=== PATIENT | male | born 1950 | race Caucasian/White ===

== ENCOUNTER 2018-01-27 11:37 | Inpatient (IN) ==
[2018-01-27] MEDS ORDERED: Metoprolol Tartrate 25 MG Tablet PO ONE (12:15)
[2018-01-27] MEDS ORDERED: Sodium Chlor 0.9% Inj 500 ML IV.CONT ONE (12:15)
[2018-01-27] MEDS ORDERED: Chlorhexidine Gluconate 2% 1 Pack (2 Cloths) TOPICAL ONE (12:15)
[2018-01-27] MEDS ORDERED: Sodium Chloride 0.9% 2 ML Flush PRN IV.FLUSH (12:18)
[2018-01-27] MEDS ORDERED: fentaNYL Citrate Inj 250 MCG/5 ML Ampul ONE (12:42)
[2018-01-27] MEDS ORDERED: Lidocaine PF 1% Inj 5 ML Syringe OTHER ONE (13:45)
[2018-01-27] MEDS ORDERED: Labetalol HCl Inj 100 MG/20 ML Vial IV.CONT ONE (13:45)
[2018-01-27] MEDS ORDERED: hydrALAZINE HCl Inj 20 MG/ML Vial IV.PUSH ONE (13:45)
[2018-01-27 14:17] LABS: INR 1.2 Ratio; Prothrombin Time 12.2 sec (9.8-11.6)
[2018-01-27] MEDS ORDERED: Sugammadex Inj 200 MG/2 ML Vial IV.PUSH ONE (14:57)
[2018-01-27] MEDS ORDERED: Ketorolac Inj 30 MG/ML (IVP) Vial IV.PUSH PRN (15:09)
[2018-01-27] MEDS ORDERED: Potassium Chlor 40 mEq Premix 40 MEQ/100 ML PIGGYBACK IV.SIG PRN (15:09)
[2018-01-27] MEDS ORDERED: Potassium Chlor 20 mEq Premix 20 MEQ/100 ML PIGGYBACK IV.SIG PRN (15:09)
[2018-01-27] MEDS ORDERED: Naloxone Inj 0.4 MG/ML Vial IV.PUSH PRN (15:21)
[2018-01-27] MEDS ORDERED: Dextrose 50% in Water 50 ML Vial IV.PUSH PRN (15:22)
[2018-01-27] MEDS ORDERED: *Enalaprilat Inj 1.25 MG/ML Vial IV.PUSH ONE (15:32)
[2018-01-27] MEDS ORDERED: KCL 20 mEq/D5W/LR Inj 1,000 ML ONE (15:32)
[2018-01-27] MEDS ORDERED: Morphine Inj 30 MG/30 ML PCA.VIAL PCA ONE (15:32)
[2018-01-27] MEDS ORDERED: *Meperidine Inj 25 MG/ML Vial PERIprocedural Use ONLY ONE (15:35)
[2018-01-27 15:53] LABS: Baso # (Auto) 0.1 th/mm3 (0.0-0.2); Baso % (Auto) 0.8 % (0.0-2.0); Eos # (Auto) 0.1 th/mm3 (0.0-0.4); Eos % (Auto) 1.1 % (0.0-4.0); Hematocrit 44.6 % (39.0-51.0); Hemoglobin 14.9 gm/dL (13.0-17.0); Lymph # (Auto) 1.6 th/mm3 (1.0-4.8); Lymph % (Auto) 17.7 % (9.0-44.0); Mean Corpuscular HGB Conc 33.3 % (32.0-36.0); Mean Corpuscular Hemoglobin 33.9 pg (27.0-34.0); Mean Corpuscular Volume 101.6 fL (80.0-100.0); Mean Platelet Volume 8.7 fL (7.0-11.0); Mono # (Auto) 0.6 th/mm3 (0.0-0.9); Mono % (Auto) 6.8 % (0.0-8.0); Neut # (Auto) 6.8 th/mm3 (1.8-7.7); Neut % (Auto) 73.6 % (16.0-70.0); Platelet Count 102 th/mm3 (150-450); Red Blood Count 4.39 mil/mm3 (4.50-5.90); Red Cell Distribution Width 13.4 % (11.6-17.2); White Blood Count 9.2 th/mm3 (4.0-11.0)
[2018-01-27] MEDS ORDERED: KCL 20 mEq/D5W/LR Inj 1,000 ML IV.CONT SCH ×2 (16:00→20:00)
[2018-01-27] MEDS ORDERED: ceFAZolin 2 GM Premix Inj 2 GM/50 ML PIGGYBACK IV.SIG SCH (16:00)
[2018-01-27] MEDS: Dextrose 5%/NaCl 0.9% Inj 1,000 ML IV.CONT SCH ×2 (16:07→16:50)
[2018-01-27 16:38] LABS: Anion Gap 8 meq/L (5-15); Blood Urea Nitrogen 13 mg/dL (7-18); Chloride 106 meq/L (98-107); Glomerular Filtration Rate Greater Than 89 mL/min (>89); Glucose,Random 223 mg/dL (74-106); Potassium 4.6 meq/L (3.5-5.1); Sodium 138 meq/L (136-145)
[2018-01-27] MEDS: Insulin NovoLIN Regular Correctional Sugar Inj SQ SCH ×2 (17:15→23:13)
--- NOTE | 2018-01-27 19:34 | MP ---
cc: Camden Marie MD, John T MD DATE OF OPERATION: 01/27/2018 DATE OF PROCEDURE: 01/27/2018 PREOPERATIVE DIAGNOSIS: Ascending colon polyp. POSTOPERATIVE DIAGNOSIS: Ascending colon polyp. PROCEDURE PERFORMED: Ascending colectomy. ANESTHESIA: General endotracheal. SURGEON: Camden Marie MD LICENSED AUDIOLOGIST: Colt Blake MD ESTIMATED BLOOD LOSS: 25 mL OPERATING TIME: 50 minutes. OPERATIVE FINDINGS: This patient was found to have a good size sessile colon polyp that was attempted to be removed by EMR. He was referred to [place] for surgery. I did a colonoscopy on him, looked at the polyp and felt that it was too sessile to be removed. It was ulcerated, but it was biopsied and the biopsy benign. It was approximately 3 x 4 cm in size. It had been previously tattooed. At surgery, exploration of the abdominal cavity revealed that the liver was enlarged, probably a fatty liver. It was speckled, probably steatosis. It did not feel scarred or nodular, such as cirrhosis, but it may have been early cirrhosis. The gallbladder was palpably normal. The remainder of the colon and small bowel was all palpably normal. The polyp was in the ascending colon and an ascending colectomy was done with an ileotransverse colon anastomosis. OPERATIVE TECHNIQUE: The patient was placed on the table in the supine position. After adequate general endotracheal anesthesia, the abdomen was prepped and draped in the usual manner. A transverse right supraumbilical skin incision was made, carried down through subcutaneous tissue and the rectus muscles. The peritoneal cavity was entered with the above-mentioned findings. Attention was turned to the cecum and the terminal ileum. It was mobilized up out of the right colic gutter and the ascending colon was mobilized along its peritoneal reflection and the hepatic flexure was mobilized as well. The lesser sac was entered between the stomach and the transverse mesocolon and the remainder of the ascending colon and cecum was brought up off of the duodenum. Just to the right of the middle colic vessels a space of the mesentery was entered and the marginal vessel was clamped, cut and ligated and the transverse colon was divided at this point with an Ethicon DASH 55 stapling device. Once this was done, our attention was turned to the terminal ileum and the ileocolic vessels were isolated and the terminal ileum was cleared and divided between Elizabeth clamps. The ileocolic vessels were then doubly clamped, cut, and doubly ligated at their takeoff with 0 Vicryl ligatures and the right branches of the middle colic and the right colic vessels were doubly clamped, cut and doubly ligated with 0 Vicryl ligature and the specimen was removed from the table. The anastomosis was carried out along the antimesenteric border of the bowel using Ethicon DASH 55 stapling device and the colotomy was closed with a TX 60 blue staple height stapling device. The opening in the mesentery was approximated with running 3-0 Vicryl suture, fully closing the mesenteric opening. There was no tension on the anastomosis. The blood supply was excellent. Hemostasis was maintained throughout with electrocautery and ligature. The abdominal cavity was irrigated thoroughly with saline solution, aspirated dry and the bowels were replaced in the abdominal cavity in an director heart manner. The omentum was placed over the bowel and the abdominal cavity was closed in layers using double-stranded #1 PDS for the posterior rectus sheath and then that muscle layer was then irrigated with saline solution and the anterior rectus sheath was closed with double stranded #1 PDS as well. Subcutaneous tissue was irrigated thoroughly with saline solution, aspirated dry and the skin was closed with running 3-0 Vicryl subcuticular suture and a dressing was applied. Sponge, needle and instrument counts were reported as correct. Estimated blood loss was 25 mL. Operating time was 50 minutes. The patient tolerated the procedure well and left the operating room in good condition. MD JOVANI Khalil/bahman , 06:23 PM , 06:33 PM ARMIN
[2018-01-27] MEDS ORDERED: Sodium Chloride 0.9% 2 ML Flush BID IV.FLUSH SCH (21:00)
[2018-01-27] MEDS ORDERED: SALMETEROL INH SCH (21:00)
[2018-01-27] MEDS ORDERED: FLUTICASONE PROPIONATE INH SCH (21:00)
[2018-01-27] MEDS: ceFAZolin Inj 2,000 MG in Sodium Chlor 0.9% Inj 80 ML IV.SIG SCH (21:12)
[2018-01-27] MEDS: Metoprolol Tartrate 25 MG Tablet PO SCH (21:13)
[2018-01-28] MEDS ORDERED: KCL 20 mEq/D5W/LR Inj 1,000 ML IV.CONT SCH
[2018-01-28] MEDS: Morphine Inj 30 MG/30 ML PCA.VIAL PCA PRN ×2 (03:07→06:32)
[2018-01-28 04:56] LABS: Baso % (Auto) 0.1 % (0.0-2.0); Hematocrit 42.6 % (39.0-51.0); Hemoglobin 14.2 gm/dL (13.0-17.0); Lymph # (Auto) 0.5 th/mm3 (1.0-4.8); Lymph % (Auto) 3.8 % (9.0-44.0); Mean Corpuscular HGB Conc 33.2 % (32.0-36.0); Mean Corpuscular Volume 102.3 fL (80.0-100.0); Mean Platelet Volume 8.7 fL (7.0-11.0); Mono # (Auto) 1.2 th/mm3 (0.0-0.9); Mono % (Auto) 9.7 % (0.0-8.0); Neut # (Auto) 10.5 th/mm3 (1.8-7.7); Neut % (Auto) 86.4 % (16.0-70.0); Platelet Count 162 th/mm3 (150-450); Red Blood Count 4.17 mil/mm3 (4.50-5.90); Red Cell Distribution Width 13.6 % (11.6-17.2); White Blood Count 12.1 th/mm3 (4.0-11.0)
[2018-01-28] MEDS: KCL 20 mEq/D5W/LR Inj 1,000 ML IV.CONT SCH ×2 (05:06→10:40)
[2018-01-28] MEDS: ceFAZolin Inj 2,000 MG in Sodium Chlor 0.9% Inj 80 ML IV.SIG SCH ×2 (05:08→12:30)
[2018-01-28 05:15] LABS: Calcium 7.6 mg/dL (8.5-10.1); Carbon Dioxide 25.3 meq/L (21.0-32.0)
[2018-01-28] MEDS: Insulin NovoLIN Regular Correctional Sugar Inj SQ SCH ×4 (06:24→23:10)
[2018-01-28] MEDS: Fenofibrate 145 MG Tablet PO SCH (08:49)
[2018-01-28] MEDS: Metoprolol Tartrate 25 MG Tablet PO SCH ×2 (08:49→20:40)
[2018-01-28] MEDS: Pantoprazole Inj 40 MG Vial IV.PUSH SCH (08:50)
--- NOTE | 2018-01-28 15:43 | P.PNCS ---
Subjective Colorectal Surgery Post Op Day #: 1 Interval history: No N or V. No BMs. Still with pain Objective Result Diagrams: 01/28/18 04:11 01/28/18 04:11 Objective Remarks: Abd: soft,dressing dry Assessment and Plan - Plan Transfer to [address] [place] [address] D/[facility] tomorrow
[2018-01-29] MEDS: Insulin NovoLIN Regular Correctional Sugar Inj SQ SCH ×3 (05:33→17:01)
--- NOTE | 2018-01-29 08:02 | P.PNCS ---
Subjective Colorectal Surgery Post Op Day #: 2 Interval history: Called this AM with agitation and confusion. Pt probably having ETOH withdrawal symptoms. Better with IV Ativan for 1 hour now mildly confused again. D/W RNs and . Will add Librium Objective Result Diagrams: 01/28/18 04:11 01/28/18 04:11 Objective Remarks: Abd: soft,dressing removed, mildly distended and painful. Assessment and Plan - Plan Transferred to [address] [place] [address] D/[facility] Add Librium. Titrate up as needed. Stop Reglan Restrain as needed.
[2018-01-29] MEDS: Metoprolol Tartrate 25 MG Tablet PO SCH ×3 (08:29→22:27)
[2018-01-29] MEDS: Fenofibrate 145 MG Tablet PO SCH (08:29)
[2018-01-29] MEDS: Pantoprazole Inj 40 MG Vial IV.PUSH SCH (08:30)
[2018-01-29 10:39] LABS: Baso # (Auto) 0.1 th/mm3 (0.0-0.2); Baso % (Auto) 0.5 % (0.0-2.0); Hematocrit 39.8 % (39.0-51.0); Hemoglobin 13.7 gm/dL (13.0-17.0); Lymph % (Auto) 8.6 % (9.0-44.0); Mean Corpuscular HGB Conc 34.5 % (32.0-36.0); Mean Corpuscular Hemoglobin 34.3 pg (27.0-34.0); Mean Corpuscular Volume 99.5 fL (80.0-100.0); Mono # (Auto) 1.3 th/mm3 (0.0-0.9); Mono % (Auto) 11.5 % (0.0-8.0); Neut # (Auto) 9.1 th/mm3 (1.8-7.7); Neut % (Auto) 79.4 % (16.0-70.0); Platelet Count 139 th/mm3 (150-450); Red Cell Distribution Width 13.1 % (11.6-17.2); White Blood Count 11.5 th/mm3 (4.0-11.0)
[2018-01-29 11:06] LABS: Calcium 8.2 mg/dL (8.5-10.1); Carbon Dioxide 29.2 meq/L (21.0-32.0); Potassium 4.1 meq/L (3.5-5.1)
[2018-01-30] MEDS: Insulin NovoLIN Regular Correctional Sugar Inj SQ SCH ×4 (00:05→17:34)
[2018-01-30] MEDS: Fenofibrate 145 MG Tablet PO SCH (08:27)
[2018-01-30] MEDS: Metoprolol Tartrate 25 MG Tablet PO SCH ×2 (08:28→20:29)
[2018-01-30] MEDS: Pantoprazole Inj 40 MG Vial IV.PUSH SCH (08:33)
--- NOTE | 2018-01-30 09:57 | P.PNCS ---
Subjective Colorectal Surgery Post Op Day #: 3 Interval history: No confusion this AM. Not too much pain. Tolerating PO. No BMs but has urge. Objective Result Diagrams: 01/29/18 10:09 01/29/18 10:09 Objective Remarks: Abd: soft, wound clean, remains distended. Assessment and Plan - Plan Transferred to [address] Regular diet Ambulate more Await BMs
[2018-01-31] MEDS: Insulin NovoLIN Regular Correctional Sugar Inj SQ SCH ×3 (01:57→12:06)
[2018-01-31 08:12] VITALS: RESP 19
[2018-01-31] MEDS: Pantoprazole Inj 40 MG Vial IV.PUSH SCH (08:32)
[2018-01-31] MEDS: Metoprolol Tartrate 25 MG Tablet PO SCH (08:32)
[2018-01-31] MEDS: Fenofibrate 145 MG Tablet PO SCH (08:32)
[2018-01-31 12:27] VITALS: BP 173/79; PULSE 80; TEMP 98.2; O2SAT 95
--- NOTE | 2018-02-17 12:02 | MD ---
cc: Camden Marie MD DATE OF DISCHARGE: 01/31/2018 ADMITTING DIAGNOSIS: Ascending colon polyp. DISCHARGE DIAGNOSIS: Ascending colon carcinoma. OPERATIVE PROCEDURE: 01/27/2018: Ascending colectomy. HISTORY: This patient was referred to me with a good sized sessile polyp that was attempted to be removed by EMR. He was referred to me for surgery. I did do a colonoscopy on the patient; looked at the polyp and felt it was too sessile and large to be removed. It was centrally ulcerated. It was biopsied and biopsy benign. 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 However, there was one metastatic lymph node in 12 lymph nodes seen. The lesion was 3 cm x 2 cm x 0.7 cm in size. All margins were uninvolved by invasive carcinoma. This was a T2N1A lesion. HOSPITAL COURSE: The patient was admitted to the hospital and underwent an ascending colectomy on 01/27/2018. Postoperatively, he was started on a clear liquid diet and the patient became quite confused after surgery; required some Ativan and Librium for this. It was felt that this may be alcohol withdrawal as he had some fatty liver and/or cirrhosis at the time of surgery. Within a day or so the patient's mental status improved markedly, and he was then started on a full liquid diet on the second postoperative day and on the third postoperative day he was started on a regular diet. He was discharged from the hospital in good condition on the fourth postoperative day. He was instructed to do no driving for 2 weeks, do no heavy lifting over 10 pounds for 6 weeks and to call me with any problems. He was instructed to followup with me in the office in 2 weeks' time. MD JOVANI Khalil/milady , 07:37 AM , 07:43 AM
== END 2018-01-31 12:39 | disposition home or self-care (01) ==
LOC: HSDI 11:37 → HCPC 15:34 → N07 01-28 23:36
PROVIDERS: ADMIT Colon & Rectal Surgery; ATTEND Colon & Rectal Surgery